=== PATIENT | female | born 1945 | race Caucasian/White ===

== ENCOUNTER 2017-01-31 07:23 | Observation (INO) ==
--- NOTE | 2017-01-31 07:44 | Emergency Department Note ---
Disposition Clinical Impression: Generalized weakness Disposition: Admitted As Inpatient Condition: Good Referrals: Chelly Santamaria SLOPE HOIST OPERATOR [Primary Care Provider] - Forms: ED Satisfaction Letter Time of Disposition: 10:59 Weakness HPI - General Chief complaint: ED Fall Stated complaint: generalized weakness per EMS/ fall Time Seen by Provider: 01/31/17 07:42 Source: patient, EMS Mode of arrival: EMS Limitations: no limitations Nursing Notes Reviewed: Yes Vital Signs Reviewed: Yes - History of Present Illness HPI Narrative: Patient reports for 24 hours she has been "not feeling well". This morning she has started to try to go to the bathroom and she fell without injury. States that she is "just weak". She specifically denies headache or visual changes. She denies chest pain, palpitations. She denies cough or shortness of breath but states she has COPD and is no more short of breath than usual. She denies fevers, chills or sweats. She denies any abdominal pain nor any nausea, vomiting or diarrhea. She has not had bloody or black stools. She is urinary frequency or dysuria. She denies any extremity swelling or pain. She denies numbness, tingling or weakness to any extremity and states that she is "just weak all over". She denies any episodes like this in the past. She denies any change in medicines. She denies any ill exposures. Pt Subjective Complaint: generalized weakness/fatigue, difficulty ambulating Onset (ago): day(s) (1) Duration: gradually worsening Location: generalized Migration: none Pain Severity: none Pain Scale: 0 Improves with: none Worsens with: exertion Associated symptoms: Denies: chest pain, confusion, dark stools, diaphoresis, dysuria, easy bruising, fever/chills, headaches, loss of appetite, nausea/ vomiting, myalgias, rash, shortness of breath, syncope - Related Data Allergies Allergy/AdvReac Type Severity Reaction Status Date / Time niacin Allergy Hives Verified 01/31/17 07:29 All systems ED: reviewed and negative except as stated. Past Medical History - Past Medical History Attestation: Yes The following information was validated with the patient. Source: patient, old records reviewed, nursing notes reviewed Medical history: Reports: COPD, GERD, hypertension Psychiatric history: Reports: anxiety, depression - Social History Smoking Status: Former smoker Smokeless Tobacco Status: No Alcohol use: Reports: none Drug use: Reports: none Physical Exam - General Limitations: no limitations General appearance: alert, in no apparent distress, other (Appear somewhat sallow in her color.) - Head Head exam: atraumatic, normocephalic, normal inspection - Eye Eye exam: Present: normal appearance, PERRL, EOMI. Absent: scleral icterus, conjunctival injection - ENT ENT exam: normal exam, normal oropharynx, mucous membranes moist - Neck Neck exam: Present: normal inspection, full ROM, trachea midline. Absent: tenderness, meningismus - Chest Chest inspection: Present: normal inspection, symmetric chest wall rise - Respiratory Respiratory exam: Present: normal lung sounds bilaterally, wheezes. Absent: respiratory distress - Cardiovascular Cardiovascular exam: Present: regular rate, normal rhythm, normal heart sounds. Absent: tachycardia - Abdominal Exam Abdominal exam: Present: soft, Non-Tender, normal bowel sounds. Absent: tenderness, distention, guarding, rebound, rigidity - Extremities Exam Extremities exam: Present: normal inspection, full ROM, normal capillary refill. Absent: tenderness, pedal edema, calf tenderness - Expanded Lower Extremity Exam Neurovascular/Tendon exam: Present: normal capillary refill. Absent: motor deficit, sensory deficit, tendon deficit Gait: not tested/not observed - Back Exam Back exam: Present: normal inspection, full ROM. Absent: tenderness, CVA tenderness (R), CVA tenderness (L), rashes - Neurological Exam Neurological exam: Present: alert, oriented X3, CN II-XII intact. Absent: motor sensory deficit - Psychiatric Psychiatric exam: Present: normal affect, normal mood - Skin Skin exam: Present: warm, dry, intact. Absent: normal color (Sallow), cyanosis , diaphoresis, pallor Course - Reevaluation(s) Reevaluation #1: Discussed test results and treatment plan with patient and family. They are agreeable with observation admission, further workup for generalized weakness, repeat troponins. Time: 10:50 Vital Signs Temperature 98.0 F 01/31/17 07:30 Pulse Rate 87 01/31/17 07:30 Respiratory Rate 18 01/31/17 07:30 Blood Pressure 143/90 01/31/17 07:30 O2 Sat by Pulse Oximetry 96 01/31/17 07:30 Temperature 98.0 F 01/31/17 07:30 Pulse Rate 76 01/31/17 10:20 Respiratory Rate 18 01/31/17 10:20 Blood Pressure 130/82 01/31/17 10:20 O2 Sat by Pulse Oximetry 97 01/31/17 10:20 Oxygen Delivery Oxygen Delivery Nasal Cannula Weakness - MDM Narrative Medical decision making narrative: The etiology of her generalized weakness and inability to ambulate is not clear. She has a minimal troponin elevation which is not increasing. She has no chest pain or shortness of breath. She is unable to manage at home. I spoke with Dr. Martinez. He is willing to admit the patient for observation, repeat troponins, monitoring and further workup. - Differential Diagnosis Differential Diagnosis: Likely: acute myocardial infarction, anemia, hypoglycemia, sepsis/infection, dehydration, medication effect, metabolic - Medical Records Medical records reviewed: Yes I reviewed the patient's medical records. - Lab Data Lab results reviewed: Yes I reviewed the patient's lab results. Result diagrams: 01/31/17 07:55 01/31/17 07:55 Lab Results 01/31/17 01/31/17 01/31/17 Range/Units 07:53 07:55 07:55 WBC 10.2 (4.3-11.1) K/mcL RBC 4.70 (3.82-4.97) M/mcL Hgb 12.9 (11.5-15.4) g/dL Hct 40.9 (35.3-44.9) % MCV 87.0 (83.0-100.0) fL MCH 27.4 L (28.0-33.3) pg MCHC 31.5 L (31.6-35.5) g/dL RDW 13.8 (11.5-14.5) % Plt Count 194 (140-400) K/mcL MPV 9.0 L (9.4-12.4) fL Immature Gran % 0.6 (0-4) % Seg Neutrophils % 85.2 % Lymphocytes % 6.8 % Monocytes % 7.1 % Eosinophils % 0.0 % Basophils % 0.3 % Neutrophils # 8.7 (1.6-8.9) K/mcL Lymphocytes # 0.7 (0.6-4.6) K/mcL Monocytes # 0.7 (0.0-1.3) K/mcL Eosinophils # 0.0 (0.0-0.6) K/mcL Basophils # 0.0 (0.0-0.2) K/mcL Sodium 142 (136-145) mEq/L Potassium 4.1 (3.5-4.5) mEq/L Chloride 101 (98-109) mEq/L Carbon Dioxide 30 H (19-29) mEq/L BUN 27 H (7-20) mg/dL Creatinine 1.39 H (0.57-1.11) mg/dL Est GFR ( Amer) 45 L (> 60) Est GFR (Non-Af Amer) 37 L (> 60) BUN/Creatinine Ratio 19 (6-26) Glucose 131 H (70-99) mg/dL POC Glucose 130 H (58-89) Calculated Osmolality 301 H (280-300) Calcium 10.3 (8.6-10.8) mg/dL Total Bilirubin 1.0 (0.2-1.2) mg/dL AST 13 (5-34) Units/L ALT 6 (0-55) Units/L Alkaline Phosphatase 73 (38-126) Units/L Troponin I (0-0.03) ng/mL Serum Total Protein 7.1 (6.0-8.3) g/dL Albumin 3.3 L (3.5-5.0) g/dL Globulin 3.8 H (2.4-3.5) g/dL Albumin/Globulin Ratio 0.9 L (1.1-2.2) TSH (0.350-4.840) mcIU/mL Urine Color (Yellow) Urine Clarity (Clear) Urine pH (5.0-8.0) pH Units Ur Specific [place] (1.010-1.025) Urine Protein (Neg-Trace) mg/dL Urine Glucose (UA) (Normal) mg/dL Urine Ketones (Negative) mg/dL Urine Blood (Negative) Urine Nitrite (Negative) Urine Bilirubin (Negative) Urine Urobilinogen (Normal) mg/dL Ur Leukocyte Esterase (Negative) Urine Microscopic WBC (0-3) per hpf Ur Squamous Epith Cells (None-Few) per lpf Amorphous Sediment (Few) Granular Casts (None Seen) per lpf Ur Culture Indicated? (NO) 01/31/17 01/31/17 01/31/17 Range/Units 07:55 07:55 08:10 WBC (4.3-11.1) K/mcL RBC (3.82-4.97) M/mcL Hgb (11.5-15.4) g/dL Hct (35.3-44.9) % MCV (83.0-100.0) fL MCH (28.0-33.3) pg MCHC (31.6-35.5) g/dL RDW (11.5-14.5) % Plt Count (140-400) K/mcL MPV (9.4-12.4) fL Immature Gran % (0-4) % Seg Neutrophils % % Lymphocytes % % Monocytes % % Eosinophils % % Basophils % % Neutrophils # (1.6-8.9) K/mcL Lymphocytes # (0.6-4.6) K/mcL Monocytes # (0.0-1.3) K/mcL Eosinophils # (0.0-0.6) K/mcL Basophils # (0.0-0.2) K/mcL Sodium (136-145) mEq/L Potassium (3.5-4.5) mEq/L Chloride (98-109) mEq/L Carbon Dioxide (19-29) mEq/L BUN (7-20) mg/dL Creatinine (0.57-1.11) mg/dL Est GFR ( Amer) (> 60) Est GFR (Non-Af Amer) (> 60) BUN/Creatinine Ratio (6-26) Glucose (70-99) mg/dL POC Glucose (58-89) Calculated Osmolality (280-300) Calcium (8.6-10.8) mg/dL Total Bilirubin (0.2-1.2) mg/dL AST (5-34) Units/L ALT (0-55) Units/L Alkaline Phosphatase (38-126) Units/L Troponin I 0.04 H* (0-0.03) ng/mL Serum Total Protein (6.0-8.3) g/dL Albumin (3.5-5.0) g/dL Globulin (2.4-3.5) g/dL Albumin/Globulin Ratio (1.1-2.2) TSH 1.041 (0.350-4.840) mcIU/mL Urine Color Yellow (Yellow) Urine Clarity Slightly Cloudy A (Clear) Urine pH 5.0 (5.0-8.0) pH Units Ur Specific [place] 1.025 (1.010-1.025) Urine Protein >=300 H (Neg-Trace) mg/dL Urine Glucose (UA) Normal (Normal) mg/dL Urine Ketones Negative (Negative) mg/dL Urine Blood Moderate H (Negative) Urine Nitrite Negative (Negative) Urine Bilirubin Negative (Negative) Urine Urobilinogen Normal (Normal) mg/dL Ur Leukocyte Esterase Negative (Negative) Urine Microscopic WBC 0-3 (0-3) per hpf Ur Squamous Epith Cells Few (None-Few) per lpf Amorphous Sediment Many H (Few) Granular Casts Moderate H (None Seen) per lpf Ur Culture Indicated? NO (NO) 01/31/17 Range/Units 10:00 WBC (4.3-11.1) K/mcL RBC (3.82-4.97) M/mcL Hgb (11.5-15.4) g/dL Hct (35.3-44.9) % MCV (83.0-100.0) fL MCH (28.0-33.3) pg MCHC (31.6-35.5) g/dL RDW (11.5-14.5) % Plt Count (140-400) K/mcL MPV (9.4-12.4) fL Immature Gran % (0-4) % Seg Neutrophils % % Lymphocytes % % Monocytes % % Eosinophils % % Basophils % % Neutrophils # (1.6-8.9) K/mcL Lymphocytes # (0.6-4.6) K/mcL Monocytes # (0.0-1.3) K/mcL Eosinophils # (0.0-0.6) K/mcL Basophils # (0.0-0.2) K/mcL Sodium (136-145) mEq/L Potassium (3.5-4.5) mEq/L Chloride (98-109) mEq/L Carbon Dioxide (19-29) mEq/L BUN (7-20) mg/dL Creatinine (0.57-1.11) mg/dL Est GFR ( Amer) (> 60) Est GFR (Non-Af Amer) (> 60) BUN/Creatinine Ratio (6-26) Glucose (70-99) mg/dL POC Glucose (58-89) Calculated Osmolality (280-300) Calcium (8.6-10.8) mg/dL Total Bilirubin (0.2-1.2) mg/dL AST (5-34) Units/L ALT (0-55) Units/L Alkaline Phosphatase (38-126) Units/L Troponin I 0.04 H* (0-0.03) ng/mL Serum Total Protein (6.0-8.3) g/dL Albumin (3.5-5.0) g/dL Globulin (2.4-3.5) g/dL Albumin/Globulin Ratio (1.1-2.2) TSH (0.350-4.840) mcIU/mL Urine Color (Yellow) Urine Clarity (Clear) Urine pH (5.0-8.0) pH Units Ur Specific [place] (1.010-1.025) Urine Protein (Neg-Trace) mg/dL Urine Glucose (UA) (Normal) mg/dL Urine Ketones (Negative) mg/dL Urine Blood (Negative) Urine Nitrite (Negative) Urine Bilirubin (Negative) Urine Urobilinogen (Normal) mg/dL Ur Leukocyte Esterase (Negative) Urine Microscopic WBC (0-3) per hpf Ur Squamous Epith Cells (None-Few) per lpf Amorphous Sediment (Few) Granular Casts (None Seen) per lpf Ur Culture Indicated? (NO) - Radiology Data Radiology results reviewed: Yes I reviewed the patient's radiology results. ITS Impressions Chest X-Ray 01/31/17 07:37 IMPRESSION: Stable exam without acute cardiopulmonary findings. D/ / Tracey Falcon MD / Tracey Falcon MD Interpreting Provider: Tracey Falcon MD - EKG Data EKG attestation: Yes I reviewed and interpreted this EKG. EKG shows normal: sinus rhythm, axis, intervals, ST-T waves Rhythm: PVC's [place]/QRS: LAHB/LAFB T wave inversions noted in: v5, v6 Interpretation: no acute changes S.B.A.R. - S.B.A.R. Situation: Demographics, MOA Background: Presenting Complaint, Relevant PMH, Meds, & Allergies Assessment: Vital Signs, Course and respsone to treatment, Exam Concerns, Patient/Family Expectation, Pertinant Lab Results, Outstanding Labs Recommendation: Barrier(s) to disposition, Recommendation based on pending studies, treatments, or consults Alexsandra Report Given to: Dr. Goel SAmari Repor Time: 08:00
[2017-01-31 08:13] LABS: Basophils % 0.3 %; Hematocrit 40.9 % (35.3-44.9); Hemoglobin 12.9 g/dL (11.5-15.4); Immature Granulocytes % 0.6 % (0-4); Lymphocytes # 0.7 K/mcL (0.6-4.6); Lymphocytes % 6.8 %; Mean Corpuscular HGB Conc 31.5 g/dL (31.6-35.5); Mean Corpuscular Hemoglobin 27.4 pg (28.0-33.3); Monocytes # 0.7 K/mcL (0.0-1.3); Monocytes % 7.1 %; Neutrophils # 8.7 K/mcL (1.6-8.9); Platelet Count 194 K/mcL (140-400); Red Cell Distribution Width 13.8 % (11.5-14.5); Segmented Neutrophils % 85.2 %
[2017-01-31 08:16] LABS: Bilirubin,Urine Negative (Negative); Blood,Urine Moderate (Negative); Clarity,Urine Slightly Cloudy (Clear); Color,Urine Yellow (Yellow); Glucose,Urine (UA) Normal (Normal); Ketones,Urine Negative (Negative); Leukocyte Esterase,Urine Negative (Negative); Nitrite,Urine Negative (Negative); Protein,Urine >=300 mg/dL (Neg-Trace); Specific Gravity,Urine 1.025 (1.010-1.025); Urobilinogen,Urine Normal (Normal)
[2017-01-31 08:23] LABS: Amorphous Sediment,Urine Many (Few); Granular Casts,Urine Moderate per lpf (None Seen); Squamous Epithelial Cell,Urine Few per lpf (None-Few); WBC,Urine 0-3 per hpf (0-3)
[2017-01-31 08:29] LABS: Albumin 3.3 g/dL (3.5-5.0); Albumin/Globulin Ratio 0.9 (1.1-2.2); Calcium 10.3 mg/dL (8.6-10.8); Globulin 3.8 g/dL (2.4-3.5); Potassium 4.1 mEq/L (3.5-4.5); Total Protein 7.1 g/dL (6.0-8.3)
[2017-01-31] MEDS ORDERED: Aspirin 81 MG TAB.CHEW PO ONE (09:01)
[2017-01-31] MEDS ORDERED: Naloxone 0.4 MG/ML INJ IVP PRN (12:51)
[2017-01-31] MEDS ORDERED: Budesonide/Formoterol 160/4.5 MDI IH ONE (14:59)
--- NOTE | 2017-01-31 15:01 | Internal Med History&Physical ---
Date of Encounter: 01/31/17 Time of Encounter: 14:15 Assessment and Plan (1) Generalized weakness Current visit: Yes Status: Acute Suspect multifactorial origin. Will treat with workup as outlined below. (2) Adrenal mass, right Current visit: Yes Status: Acute Will order CT of chest, abdomen, and pelvis for further evaluation. (3) Neutrophilia Current visit: Yes Status: Acute Will order chest CT (4) CKD (chronic kidney disease) stage 3, GFR 30-59 ml/min Current visit: Yes Status: Chronic We will give IV fluids and monitor renal indices. Internal Medicine - H&P: HPI Chief complaint: Weakness Admitted From: Home Plans for Post Hospital Care: Home History of present illness: Ms. Tompkins is a 71 year old female who came to emergency room stating she was too weak to get out of bed this morning. She called for her grandson who lives with her but he was apparently unable to hear her calling. She then called 911 and was brought to emergency room. She was evaluated and admitted to [facility] floor for ongoing care needs. She states the morning of January 30 she also felt weak but her grandson did come when she called. He was able to help her out of bed and she felt as strong as usual for the rest of the day. She reports she has had rhinorrhea for the last 3 days but denies worsening cough or dyspnea. She denies other infectious symptoms such as vomiting or diarrhea or fevers. Respiratory history is significant for having smoked from age [age] up to 1 pack per day. She states she had PFTs approximately 2013 and was told she had COPD. She wears oxygen at home 14/05. Past Med Surg Social Fam HX - Past Medical History Medical history: COPD, GERD, hypertension Psychiatric history: anxiety, depression - Social History Smoking Status: Former smoker Smokeless Tobacco Status: No Alcohol use: none Drug use: none Internal Medicine - H&P: Meds Albuterol Sulfate [Proair Hfa] 1 puff IH DAILY 01/31/17 [History] Amlodipine [Norvasc] 5 mg PO DAILY 01/31/17 [History] Fluticasone/Salmeterol [Advair 500-50 Diskus] 1 each IH DAILY 01/31/17 [History] Lansoprazole [Prevacid] 30 mg PO DAILY 01/31/17 [History] Metoprolol [Lopressor] 25 mg PO DAILY 01/31/17 [History] Oxybutynin Chloride [Ditropan Xl] 5 mg PO DAILY 01/31/17 [History] Ranitidine HCl [Acid Enterprise Systems Engineer] 150 mg PO DAILY 01/31/17 [History] Tiotropium [Spiriva] 18 mcg IH 0700 01/31/17 [History] Tramadol HCl [Ultram] 50 mg PO DAILY 01/31/17 [History] Allergies niacin Allergy (Verified 01/31/17 07:29) Hives quinine Allergy (Verified 01/31/17 11:32) See Comments states it takes her air away All Systems PM: A 10-system review of systems was performed and is negative for pertinent findings except as documented above in the HPI. Review of systems: Gen.: She states her weight has decreased by 10 pounds in the past year, intentionally Cardiovascular: She has history of hypertension but denies GA heart failure angina DVT or pulmonary embolus. Respiratory: As per history of present illness GI: She denies disorders of her liver gallbladder or exocrine pancreas : She has chronic kidney disease and follows with Dr. Zapata's practice. She denies other kidney or bladder disorders Neurologic: She denies large distribution strokes or seizures. Endocrine: She had diabetes diagnosed in the past but does not take medication at this time. Hemoglobin A1c was 5.3% on 03/14/2016. She denies thyroid disease or hyperlipidemia Hematology/oncology: She denies blood disorders cancers or anemia. A chest CT done 09/05/2016 showed a mass in the right adrenal gland measuring 5.4 x 4.1 cm suspicious for adrenal carcinoma or metastatic disease. The patient did not mention this CT scan finding and it was discovered incidentally reviewing her old records. Psychiatric: She has history of anxiety but denies depression or other mental health issues Musk skeletal: She has DJD but no known gout or other bone joint or muscle disorders. - Constitutional Vitals: Temp Pulse Resp BP Pulse Ox 97.9 F 77 16 155/92 96 01/31/17 13:00 01/31/17 13:00 01/31/17 13:00 01/31/17 13:00 01/31/17 13:00 Exam: Gen.: She is a well-developed well-nourished female who appears weak but in no severe distress at present time HEENT: Head is atraumatic and normocephalic. Eyes: EOMI. There is no scleral icterus. Mouth: Mucosa is moist. Neck: Supple and nontender. There is no thyromegaly or adenopathy noted. Heart: Regular without murmurs gallops or ectopics. Lungs: No wheezes or crackles are heard. She has egophony in the right posterior lower lung field and equivocally egophony in the left posterior lung field. Back: She has dorsal kyphosis. There is no flank tenderness. Abdomen: Soft and nontender. No masses or guarding noted. Extremities: There is no cyanosis edema or clubbing noted. Dorsalis pedis and posterior tibial pulses are trace palpable bilaterally. Her feet are cool to touch. Neurologic: Mental status: She is talkative and a good historian. Cranial nerves: Smile is symmetric. Forehead wrinkles bilaterally. Tongue protrudes midline. EOMI. Motor: There is no pronator drift. Cerebellar: Finger to nose is intact bilaterally. Skin: Warm and dry Internal Med - H&P Results - Labs CBC & Chem 7: 01/31/17 07:55 01/31/17 07:55
[2017-01-31] MEDS ORDERED: Tiotropium 18 MCG inhalation IH ONE (15:02)
[2017-01-31] MEDS: Famotidine 20 MG TABLET PO SCH (15:32)
--- NOTE | 2017-01-31 19:58 | Electrocardiograph Report ---
[address] [place], [place] [address] Test Date: 2017-01-31 Pat Name: Pao Tompkins Department: [id number] Room: [facility] Gender: F Client Service Representative: [id number] : 1945 Requested By: Mitchel Vo Order Number: [id number] Reading MD: Socorro Mijares Measurements Intervals [place] Rate: 84 P: -88 DE: 139 QRS: -50 QRSD: 107 T: 18 QT: 393 QTc: 434 Interpretive Statements ECTOPIC ATRIAL RHYTHM LEFT ANTERIOR FASCICULAR BLOCK ST DEVIATION AND MODERATE T-WAVE ABNORMALITY, CONSIDER LATERAL ISCHEMIA Electronically Signed On 01-31-2017 19:56:55 EDT by Socorro Mijares
[2017-02-01 06:07] LABS: Basophils % 0.3 %; Eosinophils # 0.1 K/mcL (0.0-0.6); Eosinophils % 1.2 %; Hematocrit 33.2 % (35.3-44.9); Hemoglobin 10.5 g/dL (11.5-15.4); Immature Granulocytes % 0.4 % (0-4); Lymphocytes # 1.4 K/mcL (0.6-4.6); Lymphocytes % 20.6 %; Mean Corpuscular HGB Conc 31.6 g/dL (31.6-35.5); Mean Corpuscular Hemoglobin 27.4 pg (28.0-33.3); Mean Corpuscular Volume 86.7 fL (83.0-100.0); Mean Platelet Volume 9.4 fL (9.4-12.4); Monocytes # 0.6 K/mcL (0.0-1.3); Monocytes % 9.2 %; Neutrophils # 4.7 K/mcL (1.6-8.9); Platelet Count 166 K/mcL (140-400); Red Blood Count 3.83 M/mcL (3.82-4.97); Red Cell Distribution Width 13.8 % (11.5-14.5); Segmented Neutrophils % 68.3 %
[2017-02-01 06:23] LABS: Calcium 9.2 mg/dL (8.6-10.8); Potassium 3.8 mEq/L (3.5-4.5)
[2017-02-01 06:59] VITALS: BP 146/81
[2017-02-01] MEDS ORDERED: Tiotropium 18 MCG inhalation IH SCH ×2 (07:00→10:00)
[2017-02-01] MEDS: Famotidine 20 MG TABLET PO SCH (08:07)
[2017-02-01] MEDS ORDERED: NON-FORMULARY MEDICATION 1 EACH EACH (Ranitidine Hcl [Acid Reducer] 150 MG) PO SCH (09:00)
[2017-02-01] MEDS ORDERED: NON-FORMULARY MEDICATION 1 EACH EACH (Oxybutynin Chloride [Ditropan Xl] 5 MG) PO SCH (09:00)
[2017-02-01] MEDS ORDERED: NON-FORMULARY MEDICATION 1 EACH EACH (Fluticasone/Salmeterol [Advair 500-50 Diskus] 1 EACH IH SCH (09:00)
[2017-02-01] MEDS ORDERED: Famotidine 20 MG TABLET PO SCH (09:00)
--- NOTE | 2017-02-01 09:02 | Discharge Summary ---
Date of Encounter: 02/01/17 Time of Encounter: 08:50 - Discharge Diagnosis (1) Generalized weakness Priority: Primary Status: Acute (2) Adrenal mass, right Priority: Secondary Status: Chronic (3) Neutrophilia Priority: Secondary Status: Resolved (4) CKD (chronic kidney disease) stage 3, GFR 30-59 ml/min Priority: Secondary Status: Chronic - Discharge Medications Home Medications: Albuterol Sulfate [Proair Hfa] 1 puff IH DAILY 01/31/17 [History] Amlodipine [Norvasc] 5 mg PO DAILY 01/31/17 [History] Fluticasone/Salmeterol [Advair 500-50 Diskus] 1 each IH DAILY 01/31/17 [History] Lansoprazole [Prevacid] 30 mg PO DAILY 01/31/17 [History] Metoprolol [Lopressor] 25 mg PO DAILY 01/31/17 [History] Oxybutynin Chloride [Ditropan Xl] 5 mg PO DAILY 01/31/17 [History] Ranitidine HCl [Acid Forest Management Professor] 150 mg PO DAILY 01/31/17 [History] Tiotropium [Spiriva] 18 mcg IH 0700 01/31/17 [History] Tramadol HCl [Ultram] 50 mg PO DAILY 01/31/17 [History] Allergies/Adverse Reactions: Allergies niacin Allergy (Verified 01/31/17 07:29) Hives quinine Allergy (Verified 01/31/17 11:32) See Comments states it takes her air away Procedures/tests Complete & Pending: Procedures Performed prior 72 hours Category Date Time Status CT abd pelvis wo no iv no oral [CT] Routine Cat Scan 01/31/17 14:[address] chest wo con [CT] Routine Cat Scan 01/31/17 14:53 Completed Date of admission: 01/31/17 11:57 Primary care physician: Chelly Santamaria Consults: 01/31/17 13:29 Consult to Soil Field Technician [CONS] Routine Reason for SW Consult: discharge planning, continuation of services, possible need for therapy - Patient Status Disposition: Home, Self-Care Condition: Good Overall status at discharge: patient is progressing back to baseline - Discharge Instructions Follow Up With: Chelly Santamaria, STATUE CARVER [Primary Care Provider] - 1 week - Diet and Activity Activity: resume usual activities as tolerated, wear oxygen at all times Diet: advance to your usual diet Hospital course: Ms. Tompkins is a 71 year old female who came to emergency room stating she was too weak to get out of bed this morning. She called for her grandson who lives with her but he was apparently unable to hear her calling. She then called 911 and was brought to emergency room. She was evaluated and admitted to [facility] for ongoing care needs. Initial orders were written by the emergency room physician. I saw her on January 31 and performed the history and physical. A CT of the chest abdomen and pelvis was ordered to further evaluate her weakness and previously seen right adrenal mass. The right adrenal mass appeared similar in size to previous scan at 5.8 x 4.5 cm. This is suspicious for malignancy. Chest CT showed diffuse severe emphysema changes with associated diffuse bronchial wall thickening scattered areas of fibrosis. I informed the patient of her adrenal mass. She reported she been told about this before but declined further workup. I explained the risks of avoiding further workup and treatment. She will talk with her PCP further about this. She was given IV fluids and her creatinine improved to 1.29. Her neutrophilia resolved on follow-up blood work done February 01. She remained afebrile during her hospital stay. Her vital signs remained stable otherwise. When I saw her on February 01 she reports she been able to get out of bed on her own strength and ambulate in the room. She felt stable for discharge home. She will follow with her PCP Chelly Santamaria CNP within 1 week. - Time Spent with Patient Total time spent providing and/or coordinating discharge services: - Constitutional Vitals: Temp Pulse Resp BP Pulse Ox 98.3 F 63 16 146/81 98 02/01/17 06:57 02/01/17 06:57 02/01/17 06:57 02/01/17 06:57 02/01/17 06:57
[2017-02-01] MEDS ORDERED: Budesonide/Formoterol 160/4.5 MDI IH SCH (10:00)
== END 2017-02-01 12:00 | disposition home or self-care (01) ==
LOC: INPPIK 07:23 → EMEROOPIK 07:23 → INPPIK 12:16
PROVIDERS: ADMIT Internal Medicine; ATTEND Internal Medicine

== ENCOUNTER 2019-02-08 20:23 | Inpatient (IN) ==
--- NOTE | 2019-02-08 20:28 | Emergency Department Note ---
Disposition Clinical Impression: History of fall, Left hip pain Disposition: Admitted As Inpatient Condition: Fair Referrals: Chelly Santamaria CNP [Primary Care Provider] - Forms: ED Satisfaction Letter Fall HPI - General Chief Complaint: ED Extremity Injury, Lower Stated Complaint: LT UPPER LEG PAIN Time Seen by Provider: 02/08/19 20:27 Source: patient, EMS Mode of arrival: EMS Limitations: no limitations, age Nursing Notes Reviewed: Yes Vital Signs Reviewed: Yes - History of Present Illness HPI Narrative: Patient had a fall yesterday evening down to her left side. She is brought in here and evaluated with x-rays of the left knee and left hip which were notable for significant osteopenia but no definite fractures. She declined pain medicine was discharged home. She states she is been okay if she is a rest but she tries to move she has severe pain in the anterior pelvis and left hip region. She has not had any recurrent fall or injury. She has not had any shortening or rotation to the leg. She denies any numbness or tingling down the leg. She denies any injury to her head, neck or back. She denies chest pain, shortness breath or palpitation. She denies abdominal pain. She denies any upper extremity injuries. With severe pain and inability to move/ambulate a squad has been again called and she has been brought in for evaluation. EMS did transmit an EKG. This showed a rate of 81 with PVCs. She has significant baseline artifact. Rate is 81, axis is 141, NM interval is 124 and a QT/QTc is 344/380. I do not see acute ST or T-wave changes and this very limited EKG. This is on my interpretation. Pt Subjective Complaint: fall Onset (ago): day(s) (1) Fall From: standing Place Fall Occurred: home Loss of Consciousness: none Prolonged Down Time?: no Context: tripped/slipped Location of injury: pelvis Location of injury - extremities: Left: hip Severity: moderate, severe Quality: unable to describe Associated symptoms (after fall): Reports: unable to walk. Denies: headache, neck pain, numbness, weakness, chest pain, shortness of breath, abdominal pain, hematuria, lightheaded, vertigo, confusion - Related Data Home Medications Medication Instructions Recorded Confirmed Albuterol Sulfate [Proair Hfa] 1 puff IH AD PRN 01/31/17 02/07/19 Lansoprazole [Prevacid] 30 mg PO DAILY 01/31/17 02/07/19 amLODIPine [Norvasc] 5 mg PO DAILY 01/31/17 02/07/19 Aspirin [Lo-Dose Aspirin EC] 81 mg PO DAILY 11/13/17 02/07/19 Cholecalciferol (Vitamin D3) 5,000 unit PO DAILY 11/13/17 02/07/19 [Vitamin D3] Metoprolol [Lopressor] 50 mg PO DAILY 11/13/17 02/07/19 Fluticasone Propionate [Flovent 2 puff IH BID 02/07/19 02/07/19 Hfa] Tramadol HCl [Ultram] 50 mg PO BID PRN 02/07/19 02/07/19 Umeclidinium Brm/Vilanterol Tr 1 each IH DAILY 02/07/19 02/07/19 [Anoro Ellipta 62.5-25 Mcg INH] raNITIdine HCl [Zantac] 150 mg PO BID 02/07/19 02/07/19 Allergies Allergy/AdvReac Type Severity Reaction Status Date / Time niacin Allergy Hives Verified 08/17/17 11:57 quinine Allergy See Verified 08/17/17 11:57 Comments All systems ED: reviewed and negative except as stated. Fall PMH - Past Medical History Medical history: Reports: arthritis, COPD (Oxygen dependent), GERD, hypertension Surgical history: Reports: appendectomy, cholecystectomy, colectomy (Partial colectomy), herniorrhaphy Psychiatric history: Reports: anxiety, depression - Social History Smoking Status: Former smoker Alcohol use: Reports: none Drug use: Reports: none Physical Exam - General Limitations: no limitations, age General appearance: alert, in distress - Head Head exam: atraumatic, normocephalic, normal inspection - Eye Eye exam: Present: normal appearance, PERRL, EOMI. Absent: conjunctival injection - ENT ENT exam: normal exam, normal oropharynx, mucous membranes moist - Neck Neck exam: Present: normal inspection, full ROM, trachea midline. Absent: tenderness - Chest Chest inspection: Present: normal inspection, symmetric chest wall rise. Absent: tenderness - Respiratory Respiratory exam: Present: normal lung sounds bilaterally. Absent: respiratory distress, wheezes, prolonged expiratory phase - Cardiovascular Cardiovascular exam: Present: regular rate, normal rhythm, normal heart sounds. Absent: tachycardia - Abdominal Exam Abdominal exam: Present: soft, Non-Tender, normal bowel sounds. Absent: tenderness, distention, guarding, rebound, rigidity, pulsatile mass, hernia - Expanded Upper Extremity Exam Shoulder exam: Present: normal inspection, full ROM. Absent: tenderness, swelling Arm exam: Present: normal inspection, full ROM Elbow exam: Present: normal inspection, full ROM. Absent: tenderness, swelling Forearm/Wrist exam: Present: normal inspection, full ROM. Absent: tenderness, swelling Hand exam: Present: normal inspection, full ROM. Absent: tenderness, swelling Vascular exam: Normal: capillary refill, radial pulse - Expanded Lower Extremity Exam Hip/Pelvis exam: Present: normal inspection, tenderness (Anterior and lateral aspect of the left hip.), pelvis stable. Absent: deformity, internal rotation, shortening Upper leg exam: Present: normal inspection, full ROM. Absent: tenderness, swelling Knee exam: Present: ecchymosis (Anterior aspect of the left knee. She is not having sitting in pain to palpation about the left knee.), knee extension intact Lower leg exam: Present: normal inspection, full ROM. Absent: tenderness, swelling Ankle exam: Present: normal inspection, full ROM. Absent: tenderness, swelling Foot/toe exam: Present: normal inspection, full ROM Neurovascular/Tendon exam: Present: normal capillary refill. Absent: pulse deficit Gait: not tested/not observed - Back Exam Back exam: Present: normal inspection, full ROM. Absent: tenderness, vertebral tenderness - Neurological Exam Neurological exam: Present: alert, oriented X3 - Psychiatric Psychiatric exam: Present: normal affect, normal mood - Skin Skin exam: Present: warm, dry, intact, normal color. Absent: diaphoresis, pallor Course Course Narrative: 2229: Care is discussed with the family, patient and ultimately with Dr. Martinez. Verbal orders have been obtained for this patient's observation. The patient has been admitted in stable condition. Vital Signs Temperature 98.8 F 02/08/19 20:30 Pulse Rate 79 02/08/19 20:30 Respiratory Rate 24 02/08/19 20:30 Blood Pressure 165/103 02/08/19 20:30 O2 Sat by Pulse Oximetry 98 02/08/19 20:30 Temperature 98.2 F 02/08/19 21:21 Pulse Rate 86 02/08/19 21:21 Respiratory Rate 20 02/08/19 21:21 Blood Pressure 167/92 02/08/19 21:21 O2 Sat by Pulse Oximetry 98 02/08/19 21:21 Oxygen Delivery Oxygen Delivery Nasal Cannula Fall - Radiology Data Radiology results reviewed: Yes I reviewed the patient's radiology results. Impressions Abdomen/Pelvis CT 02/08/19 20:29 IMPRESSION: 1. No pelvic/left hip fracture or acute abnormality is appreciated. 2. 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 3. Nonspecific enlarging right adrenal mass. Tissue sampling is recommended. 4. Diverticulosis coli without CT evidence of acute diverticulitis. ____ *Managing Abdominal Aortic Aneurysms 2.6-2.9 cm: Every 5 years* 3.0-3.4 cm: Every 3 years. 3.5-3.9 cm: Every 1 year. 4.0-4.4 cm: Every 1 year. Recommend vascular consultation. 4.5-5.4 cm: Every 6 months. Recommend vascular consultation. Greater than or equal to 5.5 cm: Referral to vascular surgeon. *For abdominal aortas with maximum diameter of 2.6-2.9 cm meeting criteria for AAA (>50% of proximal normal segment). Reference: J Vasc Surg. 2008;50(4 Suppl):S2-49 Report D/ / Jacques Lee / Jacques Lee Interpreting Provider: Jacques Lee
[2019-02-08] MEDS ORDERED: 0.9 % Sodium Chloride 1,000 ML IVC SCH (22:30)
[2019-02-08] MEDS ORDERED: *HR* HYDROcodone/Acet 5/325 mg TABLET PO ONE (22:40)
[2019-02-08 22:52] LABS: Basophils % 0.2 %; Eosinophils % 0.3 %; Hematocrit 36.7 % (35.3-44.9); Hemoglobin 11.7 g/dL (11.5-15.4); Immature Granulocytes % 0.6 % (0-4); Lymphocytes # 0.8 K/mcL (0.6-4.6); Lymphocytes % 6.5 %; Mean Corpuscular HGB Conc 31.9 g/dL (31.6-35.5); Mean Corpuscular Hemoglobin 28.2 pg (28.0-33.3); Mean Corpuscular Volume 88.4 fL (83.0-100.0); Mean Platelet Volume 9.3 fL (9.4-12.4); Monocytes # 0.8 K/mcL (0.0-1.3); Monocytes % 6.4 %; Neutrophils # 10.2 K/mcL (1.6-8.9); Platelet Count 217 K/mcL (140-400); Red Blood Count 4.15 M/mcL (3.82-4.97); Red Cell Distribution Width 13.2 % (11.5-14.5)
[2019-02-08 23:07] LABS: Calcium 9.7 mg/dL (8.6-10.3); Potassium 3.6 mEq/L (3.5-5.1)
[2019-02-08 23:17] LABS: Bilirubin,Urine Small (Negative); Blood,Urine Small (Negative); Clarity,Urine Cloudy (Clear); Color,Urine Yellow (Yellow); Glucose,Urine (UA) Normal (Normal); Ketones,Urine Trace mg/dL (Negative); Leukocyte Esterase,Urine Negative (Negative); Nitrite,Urine Negative (Negative); Protein,Urine >=300 mg/dL (Neg-Trace); Specific Gravity,Urine 1.025 (1.010-1.025); Urobilinogen,Urine Normal (Normal)
[2019-02-08 23:45] LABS: Bacteria,Urine Many per hpf (None-Few); Squamous Epithelial Cell,Urine Moderate per lpf (None-Few)
[2019-02-08 23:46] LABS: Hyaline Casts,Urine Few per lpf (None-Few); RBC,Urine 0-3 per hpf (0-3); WBC,Urine 0-3 per hpf (0-3)
[2019-02-08 23:47] LABS: Granular Casts,Urine Few per lpf (None Seen)
[2019-02-08 23:48] LABS: Renal Epithelial Cells,Urine Few per hpf (None-Few); White Blood Cell Casts,Urine Few per lpf (None Seen)
[2019-02-09] MEDS ORDERED: Acetaminophen 325 MG TABLET PO PRN (00:04)
[2019-02-09] MEDS ORDERED: Ondansetron 4 MG/2 ML VIAL IVP PRN (00:04)
[2019-02-09] MEDS ORDERED: Naloxone 0.4 MG/ML INJ IVP PRN (00:04)
[2019-02-09] MEDS ORDERED: Ibuprofen 400 MG TABLET PO PRN (00:04)
[2019-02-09] MEDS: 0.9 % Sodium Chloride 1,000 ML IVC SCH ×2 (01:08→11:15)
--- NOTE | 2019-02-09 13:12 | Internal Med History&Physical ---
Date of Encounter: 02/09/19 Time of Encounter: 12:30 Assessment and Plan (1) Pneumonia Current visit: Yes Status: Acute She will be started on Rocephin and Zithromax with lactobacillus. Qualifiers: Pneumonia type: due to unspecified organism Laterality: left Lung location: lower lobe of lung Qualified Code(s): J18.1 - Lobar pneumonia, unspecified organism (2) COPD (chronic obstructive pulmonary disease) Current visit: Yes Status: Chronic Continue supplemental oxygen and pulmonary medications. Treatment for pneumonia as above. Qualifiers: COPD type: unspecified COPD Qualified Code(s): J44.9 - Chronic obstructive pulmonary disease, unspecified (3) Adrenal mass, right Current visit: No Status: Chronic Likely malignancy. Uncertain if primary or metastatic. She declines further workup or treatment. (4) CKD (chronic kidney disease) stage 3, GFR 30-59 ml/min Current visit: No Status: Chronic Monitor renal indices. (5) Fall Current visit: No Status: Acute She will have PT and OT evaluation ongoing intervention. She feels she should likely go to SNF for longer-term care needs. Qualifiers: Encounter type: initial encounter Qualified Code(s): W19.XXXA - Unspecified fall, initial encounter Internal Medicine - H&P: HPI Chief complaint: Fall and weakness Admitted From: Emergency Dept Plans for Post Hospital Care: Home History of present illness: Ms. Tompkins is a 73 year old female who came to emergency room stating she had a fall at home. She was unable to get up using her own strength. Her son assisted her up and she was brought to emergency room and evaluated. No fractures were seen but her son did not feel he could continue to care for her in her debilitated state. She was admitted to [facility] floor for ongoing care needs. She reports her most recent previous fall was approximately 3 months ago. She r eports several episodes of feeling as if she were going to fall. She typically uses a walker for ambulation. Neurologic history is negative for known large distribution strokes or seizures. Past Med Surg Social Fam HX - Past Medical History Medical history: arthritis, COPD, GERD, hypertension Additional medical history: UNSURE OF ANY KIND OF CANCER , WEARS HOME 02 AT 3 LPM VIA [place] Psychiatric history: anxiety, depression - Past Surgical History Surgical History: appendectomy, cholecystectomy, colectomy, herniorrhaphy Additional surgical history: hernia repairs. part of colon removed - Social History Smoking Status: Former smoker Packs per day: 1.5 Smokeless Tobacco Status: No Alcohol use: none Drug use: none Internal Medicine - H&P: Meds Albuterol Sulfate [Proair Hfa] 1 puff IH AD PRN 01/31/17 [History] Lansoprazole [Prevacid] 30 mg PO DAILY 01/31/17 [History] amLODIPine [Norvasc] 5 mg PO DAILY 01/31/17 [History] Aspirin [Lo-Dose Aspirin EC] 81 mg PO DAILY 11/13/17 [History] Cholecalciferol (Vitamin D3) [Vitamin D3] 5,000 unit PO DAILY 11/13/17 [History] Metoprolol [Lopressor] 50 mg PO DAILY 11/13/17 [History] Fluticasone Propionate [Flovent Hfa] 2 puff IH BID 02/07/19 [History] Tramadol HCl [Ultram] 50 mg PO BID PRN 02/07/19 [History] Umeclidinium Brm/Vilanterol Tr [Anoro Ellipta 62.5-25 Mcg INH] 1 each IH DAILY 02/07/19 [History] raNITIdine HCl [Zantac] 150 mg PO BID 02/07/19 [History] Allergy/AdvReac Type Severity Reaction Status Date / Time niacin Allergy Hives Verified 08/17/17 11:57 quinine Allergy See Verified 08/17/17 11:57 Comments All Systems PM: A 10-system review of systems was performed and is negative for pertinent findings except as documented above in the HPI. Review of systems: Review of systems from her January 2017 [facility] hospitalization were reviewed and revised as below. Gen.: Her weight has decreased from 77.111 kg on 01/31/2017 to present weight of 56.699 kg. She reported at the January 2017 hospitalization her weight had decreased by 10 pounds in the past year. Cardiovascular: She has history of hypertension but denies ND heart failure angina DVT or pulmonary embolus. Respiratory: She smoked from age [age] up to one pack per day. She reports PFTs approximately 2013 showed COPD. She wears oxygen 14/05. GI: She denies disorders of her liver gallbladder or exocrine pancreas : She has chronic kidney disease and previously followed with Dr. Zapata's practice. She has not seen a hearing care professional recently. Neurologic: As per history of present illness Endocrine: She had diabetes diagnosed in the past but does not take medication at this time. Hemoglobin A1c was 5.5% on 01/07/2019. She denies thyroid disease or hyperlipidemia Hematology/oncology: She denies blood disorders cancers or anemia. A chest CT done 09/05/2016 showed a mass in the right adrenal gland measuring 5.4 x 4.1 cm suspicious for adrenal carcinoma or metastatic disease. I discussed this finding with her at the January 2017 hospitalization and recommended she discuss with her PCP referral for further evaluation/treatment. She states she has elected to pursue no further evaluation or treatment although she realizes she likely has cancer. Psychiatric: She has history of anxiety but denies depression or other mental health issues Musk skeletal: She has DJD but no known gout or other bone joint or muscle disorders. - Constitutional Vitals: Temp Pulse Resp BP Pulse Ox 97.8 F 77 22 165/94 93 02/09/19 10:40 02/09/19 10:40 02/09/19 10:40 02/09/19 10:40 02/09/19 10:40 Exam: Gen.: She is a well-developed lean female lying in bed who appears slightly dyspneic. HEENT: Head is atraumatic and normocephalic. Eyes: EOMI. There is no scleral icterus. Mouth: Mucosa is moist. Neck: Supple and nontender. There is no thyromegaly or adenopathy noted. Heart: Regular without murmurs gallops or ectopics Lungs: No wheezes or crackles are heard. She has diminished breath sounds diffusely. Abdomen: Soft and nontender. No masses or guarding are noted. Extremities: There is no cyanosis edema or clubbing noted. Dorsalis pedis and posterior tibial pulses are trace to 1+ palpable bilaterally. Neurologic: Mental status: She is talkative and appropriate historian. Cranial nerves: Smile is symmetric. Forehead wrinkles bilaterally. Tongue protrudes midline. EOMI. Motor: There is no pronator drift. Cerebellar: Finger to nose is intact bilaterally. Skin: Warm and dry Internal Med - H&P Results - Labs CBC & Chem 7: 02/08/19 22:44 02/08/19 22:44 Labs: Short CBC 02/08/19 Range/Units 22:44 WBC 11.9 H (4.3-11.1) K/mcL Hgb 11.7 (11.5-15.4) g/dL Hct 36.7 (35.3-44.9) % Plt Count 217 (140-400) K/mcL Neutrophils # 10.2 H (1.6-8.9) K/mcL BMP 02/08/19 22:44 Sodium 139 Potassium 3.6 Chloride 96 L Carbon Dioxide 35 H BUN 25 H Creatinine 1.18 Glucose 140 H Calcium 9.7 Urine 02/08/19 Range/Units 23:01 Urine Color Yellow (Yellow) Urine Clarity Cloudy A (Clear) Urine pH 5.0 (5.0-8.0) pH Units Ur Specific [place] 1.025 (1.010-1.025) Urine Protein >=300 H (Neg-Trace) mg/dL Urine Glucose (UA) Normal (Normal) mg/dL - Impressions ITS Impressions Abdomen/Pelvis CT 02/08/19 20:29 IMPRESSION: 1. No pelvic/left hip fracture or acute abnormality is appreciated. 2. 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 3. Nonspecific enlarging right adrenal mass. Tissue sampling is recommended. 4. Diverticulosis coli without CT evidence of acute diverticulitis. ____ *Managing Abdominal Aortic Aneurysms 2.6-2.9 cm: Every 5 years* 3.0-3.4 cm: Every 3 years. 3.5-3.9 cm: Every 1 year. 4.0-4.4 cm: Every 1 year. Recommend vascular consultation. 4.5-5.4 cm: Every 6 months. Recommend vascular consultation. Greater than or equal to 5.5 cm: Referral to vascular surgeon. *For abdominal aortas with maximum diameter of 2.6-2.9 cm meeting criteria for AAA (>50% of proximal normal segment). Reference: J Vasc Surg. 2009 Jul;50(4 Suppl):S2-49 Report D/ / Jacques Lee / Jacques Lee Interpreting Provider: Jacques Lee
[2019-02-09] MEDS: cefTRIAXone 1,000 MG in Water for inj. (sterile) 20 ML 10 ML IVP SCH (13:53)
[2019-02-09] MEDS: 0.45 % Sodium Chloride w/KCl 20 MEQ/1,000 ML MLS IVC SCH (13:54)
[2019-02-09] MEDS: Azithromycin 500 MG in D5% in Water 250 ML IVPB SCH (13:55)
[2019-02-09] MEDS: amLODIPine 5 MG TABLET PO SCH (17:08)
[2019-02-09] MEDS: Lactobacillus 1 EACH CAP.SPRINK PO SCH (20:24)
[2019-02-09] MEDS: Famotidine 20 MG TABLET PO SCH (20:24)
[2019-02-09] MEDS: *HR* HYDROcodone/Acet 5/325 mg TABLET PO PRN (20:24)
[2019-02-09] MEDS: MOMETASONE FUROATE 100 mcg Inhaler IH SCH ×2 (21:39→21:50)
[2019-02-09] MEDS: Albuterol 2.5 MG/3 ML NEBULIZER IH PRN (21:40)
[2019-02-10] MEDS: 0.45 % Sodium Chloride w/KCl 20 MEQ/1,000 ML MLS IVC SCH ×3 (03:29→19:01)
[2019-02-10] MEDS: Aspirin Enteric Coated 81 MG Tablet PO SCH (08:08)
[2019-02-10] MEDS: Cholecalciferol (D-3) 1,000 UNIT TABLET PO SCH (08:08)
[2019-02-10] MEDS: amLODIPine 5 MG TABLET PO SCH (08:08)
[2019-02-10] MEDS: Famotidine 20 MG TABLET PO SCH (08:08)
[2019-02-10] MEDS: Lactobacillus 1 EACH CAP.SPRINK PO SCH ×2 (08:08→21:18)
[2019-02-10] MEDS: *HR* HYDROcodone/Acet 5/325 mg TABLET PO PRN (08:10)
[2019-02-10] MEDS: Patient Taking Own Medication 1 EACH IH SCH (08:11)
--- NOTE | 2019-02-10 09:59 | Internal Med Progress Note ---
Date of Encounter: 02/10/19 Time of Encounter: 09:52 - Assessment and plan (1) Pneumonia Current Visit: Yes Status: Acute Assessment and plan: February 10. Continue Rocephin and Zithromax with lactobacillus. Qualifiers: Pneumonia type: due to unspecified organism Laterality: left Lung location: lower lobe of lung Qualified Code(s): J18.1 - Lobar pneumonia, unspecified organism (2) COPD (chronic obstructive pulmonary disease) Current Visit: Yes Status: Chronic Assessment and plan: February 10. Continue present regimen. Qualifiers: COPD type: unspecified COPD Qualified Code(s): J44.9 - Chronic obstructive pulmonary disease, unspecified (3) Adrenal mass, right Current Visit: No Status: Chronic Assessment and plan: February 10. Likely malignancy. She declines further workup or treatment. (4) CKD (chronic kidney disease) stage 3, GFR 30-59 ml/min Current Visit: No Status: Chronic Assessment and plan: February 10. Monitor renal indices. (5) Fall Current Visit: No Status: Acute Assessment and plan: February 10. PT and OT evaluations have been done. Initiate transfer for SNF placement after discharge. Qualifiers: Encounter type: initial encounter Qualified Code(s): W19.XXXA - Unspecified fall, initial encounter - Subjective Interval history: February 10. She has no new complaints. She feels dyspneic. She has changed her mind and now wishes to go to [facility] upon discharge. - Constitutional Vitals: Temp Pulse Resp BP Pulse Ox 97.5 F L 70 14 150/92 99 02/10/19 08:29 02/10/19 08:29 02/10/19 08:29 02/10/19 08:29 02/10/19 08:29 Exam: She is lying in bed and appears in no acute distress. She is appropriate in conversation. Extremities show no edema. I reviewed her medications and past lab results. Internal Medicine: Result - Labs CBC & Chem 7: 02/08/19 22:44 02/08/19 22:44 Consult Discharge Plan - Plan Referrals: Chelly Santamaria, [employer] [Primary Care Provider] - 1 week
[2019-02-10] MEDS: MOMETASONE FUROATE 100 mcg Inhaler IH SCH ×2 (10:07→23:15)
[2019-02-10] MEDS: cefTRIAXone 1,000 MG in Water for inj. (sterile) 20 ML 10 ML IVP SCH (14:08)
[2019-02-10] MEDS: Azithromycin 500 MG in D5% in Water 250 ML IVPB SCH (14:10)
[2019-02-11] MEDS: Famotidine 20 MG TABLET PO SCH (05:36)
[2019-02-11] MEDS: 0.45 % Sodium Chloride w/KCl 20 MEQ/1,000 ML MLS IVC SCH (05:37)
[2019-02-11 06:43] LABS: Basophils % 0.2 %; Eosinophils # 0.2 K/mcL (0.0-0.6); Eosinophils % 1.4 %; Hematocrit 36.2 % (35.3-44.9); Hemoglobin 11.3 g/dL (11.5-15.4); Immature Granulocytes % 1.5 % (0-4); Mean Corpuscular HGB Conc 31.2 g/dL (31.6-35.5); Mean Corpuscular Hemoglobin 27.6 pg (28.0-33.3); Mean Corpuscular Volume 88.3 fL (83.0-100.0); Mean Platelet Volume 9.5 fL (9.4-12.4); Monocytes % 7.9 %; Neutrophils # 9.8 K/mcL (1.6-8.9); Platelet Count 255 K/mcL (140-400); Red Cell Distribution Width 13.2 % (11.5-14.5)
[2019-02-11 07:08] LABS: Alanine Aminotransferase 7 Units/L (7-52); Albumin 2.7 g/dL (3.5-5.7); Albumin/Globulin Ratio 0.9 (1.1-2.2); Alkaline Phosphatase 80 Units/L (34-104); Aspartate Amino Transferase 9 Units/L (13-39); BUN/Creatinine Ratio 25 (6-26); Bilirubin,Total 0.6 mg/dL (0.3-1.0); Blood Urea Nitrogen 26 mg/dL (8-23); Calcium 9.5 mg/dL (8.6-10.3); Carbon Dioxide 32 mEq/L (23-29); Chloride 95 mEq/L (98-107); Globulin 2.9 g/dL (2.4-3.5); Glucose 124 mg/dL (70-105); Osmolality,Calculated 286 (280-300); Potassium 3.8 mEq/L (3.5-5.1); Sodium 135 mEq/L (136-145); Total Protein 5.6 g/dL (6.4-8.9); eGFR For Non-African Americans 52 (> 60)
[2019-02-11] MEDS: Lactobacillus 1 EACH CAP.SPRINK PO SCH ×2 (08:36→19:44)
[2019-02-11] MEDS: amLODIPine 5 MG TABLET PO SCH (08:36)
[2019-02-11] MEDS: Cholecalciferol (D-3) 1,000 UNIT TABLET PO SCH (08:36)
[2019-02-11] MEDS: Aspirin Enteric Coated 81 MG Tablet PO SCH (08:36)
[2019-02-11] MEDS: *HR* HYDROcodone/Acet 5/325 mg TABLET PO PRN ×2 (08:37→19:44)
[2019-02-11] MEDS: MOMETASONE FUROATE 100 mcg Inhaler IH SCH ×2 (09:54→19:40)
[2019-02-11] MEDS: Patient Taking Own Medication 1 EACH IH SCH (10:28)
[2019-02-11] MEDS: ALPRAZolam 0.5 MG TABLET PO PRN ×2 (11:10→19:44)
[2019-02-11] MEDS: cefTRIAXone 1,000 MG in Water for inj. (sterile) 20 ML 10 ML IVP SCH (14:42)
[2019-02-11] MEDS: Azithromycin 500 MG in D5% in Water 250 ML IVPB SCH (14:43)
--- NOTE | 2019-02-11 15:04 | Internal Med Progress Note ---
Date of Encounter: 02/11/19 Time of Encounter: 14:55 - Assessment and plan (1) Pneumonia Current Visit: Yes Status: Acute Assessment and plan: February 10. Continue Rocephin and Zithromax with lactobacillus. Qualifiers: Pneumonia type: due to unspecified organism Laterality: left Lung location: lower lobe of lung Qualified Code(s): J18.1 - Lobar pneumonia, unspecified organism (2) COPD (chronic obstructive pulmonary disease) Current Visit: Yes Status: Chronic Assessment and plan: February 10. Continue present regimen. Qualifiers: COPD type: unspecified COPD Qualified Code(s): J44.9 - Chronic obstructive pulmonary disease, unspecified (3) Adrenal mass, right Current Visit: No Status: Chronic Assessment and plan: February 10. Likely malignancy. She declines further workup or treatment. (4) CKD (chronic kidney disease) stage 3, GFR 30-59 ml/min Current Visit: No Status: Chronic Assessment and plan: February 10. Monitor renal indices. February 11. Creatinine has decreased to 1.04 with estimated GFR 52. Continue to monitor labs periodically. (5) Fall Current Visit: No Status: Acute Assessment and plan: February 10. PT and OT evaluations have been done. Initiate transfer for SNF placement after discharge. Qualifiers: Encounter type: initial encounter Qualified Code(s): W19.XXXA - Unspecified fall, initial encounter - Subjective Interval history: February 10. She has no new complaints. She feels dyspneic. She has changed her mind and now wishes to go to [facility] upon discharge. February 11. She has no new complaints. - Constitutional Vitals: Temp Pulse Resp BP Pulse Ox 97.9 F 91 26 133/98 94 02/11/19 14:29 02/11/19 14:29 02/11/19 14:29 02/11/19 14:29 02/11/19 14:29 Exam: She is sitting in a chair at bedside. She is wearing oxygen but appears dyspneic. She is able to speak a few words but talking is difficult. She is appropriate and understanding in conversation. I reviewed her medications and lab results. Internal Medicine: Result - Labs CBC & Chem 7: 02/11/19 06:10 02/11/19 06:10 Labs: Short CBC 02/11/19 Range/Units 06:10 WBC 12.1 H (4.3-11.1) K/mcL Hgb 11.3 L (11.5-15.4) g/dL Hct 36.2 (35.3-44.9) % Plt Count 255 (140-400) K/mcL Neutrophils # 9.8 H (1.6-8.9) K/mcL BMP 02/11/19 06:10 Sodium 135 L Potassium 3.8 Chloride 95 L Carbon Dioxide 32 H BUN 26 H Creatinine 1.04 Glucose 124 H Calcium 9.5 Liver Function 02/11/19 Range/Units 06:10 Total Bilirubin 0.6 (0.3-1.0) mg/dL AST 9 L (13-39) Units/L ALT 7 (7-52) Units/L Alkaline Phosphatase 80 (34-104) Units/L Albumin 2.7 L (3.5-5.7) g/dL Consult Discharge Plan - Plan Referrals: Chelly Santamaria, [employer] [Primary Care Provider] - 1 week
[2019-02-12] MEDS: Famotidine 20 MG TABLET PO SCH (06:23)
[2019-02-12] MEDS ORDERED: *HR* Etomidate 20 MG/10 ML AMPUL IVP ONE ×2 (09:13→09:16)
[2019-02-12 10:23] LABS: ABG Base Excess 3 mEq/L (-2 to 3); ABG HCO3 32 mEq/L (21-27); ABG Oxygen Saturation 90 % (95-98); ABG PCO2 72 mmHg (35-45); ABG PH 7.26 pH Units (7.32-7.45); ABG PO2 70 mmHg (85-104); ABG TCO2 34 mEq/L (20-26)
[2019-02-12] MEDS: MOMETASONE FUROATE 100 mcg Inhaler IH SCH ×2 (11:11→21:57)
--- NOTE | 2019-02-12 11:24 | Emergency Department Note ---
START Narrative - START START: I have evaluated this patient on a rapid response on this patient approximately 9:30 to 10 AM on 2018. Patient did not have her oxygen on was saturating in the 50s when she was encountered by hospital staff and has had persistent altered mental status. She is having agonal type respirations and persistent hypoxia. She is not moving extremities or responding. Respiratory therapy started bag valve mask ventilation and I have intubated the patient orotracheally with a 7-Belarusian endotracheal tube under direct visualization without difficulty. Tube was secured at 20 cm and she has good color change on capnography. She has good bilateral breath sounds. We have contacted Dr. Martinez and he has come to the department. He was in contact with the family who indicate this patient is a DNR status and he is clarifying that coordinate how aggressive further care should be. She is continued with a strong perfusing pulse and her saturations are now improved. Orders were verbally given for chest x-ray, EKG, CBC, basic chemistries and troponin. These have not yet been instituted as Dr. Martinez is coronary with family as to her ongoing care and testing. Care is turned over to Dr. Martinez for further care. Diagnosis acute respiratory arrest Condition guarded Procedure: Orotracheal intubation
[2019-02-12] MEDS: Aspirin Enteric Coated 81 MG Tablet PO SCH (11:52)
[2019-02-12] MEDS: Lactobacillus 1 EACH CAP.SPRINK PO SCH ×2 (11:53→21:55)
[2019-02-12] MEDS: amLODIPine 5 MG TABLET PO SCH (11:54)
[2019-02-12] MEDS: Cholecalciferol (D-3) 1,000 UNIT TABLET PO SCH (11:54)
[2019-02-12] MEDS: Patient Taking Own Medication 1 EACH IH SCH (11:55)
[2019-02-12] MEDS ORDERED: *HR* LORazepam 2 MG/ML VIAL IVP PRN (12:52)
[2019-02-12] MEDS: cefTRIAXone 1,000 MG in Water for inj. (sterile) 20 ML 10 ML IVP SCH (13:44)
[2019-02-12] MEDS: Azithromycin 500 MG in D5% in Water 250 ML IVPB SCH (13:46)
--- NOTE | 2019-02-12 15:38 | Internal Med Progress Note ---
Date of Encounter: 02/12/19 Time of Encounter: 15:25 - Assessment and plan (1) Pneumonia Current Visit: Yes Status: Acute Assessment and plan: February 10. Continue Rocephin and Zithromax with lactobacillus. Qualifiers: Pneumonia type: due to unspecified organism Laterality: left Lung location: lower lobe of lung Qualified Code(s): J18.1 - Lobar pneumonia, unspecified organism (2) COPD (chronic obstructive pulmonary disease) Current Visit: Yes Status: Chronic Assessment and plan: February 10. Continue present regimen. Qualifiers: COPD type: unspecified COPD Qualified Code(s): J44.9 - Chronic obstructive pulmonary disease, unspecified (3) Adrenal mass, right Current Visit: No Status: Chronic Assessment and plan: February 10. Likely malignancy. She declines further workup or treatment. (4) CKD (chronic kidney disease) stage 3, GFR 30-59 ml/min Current Visit: No Status: Chronic Assessment and plan: February 10. Monitor renal indices. February 11. Creatinine has decreased to 1.04 with estimated GFR 52. Continue to monitor labs periodically. February 12. Recheck labs in a.m. (5) Fall Current Visit: No Status: Acute Assessment and plan: February 10. PT and OT evaluations have been done. Initiate transfer for SNF placement after discharge. Qualifiers: Encounter type: initial encounter Qualified Code(s): W19.XXXA - Unspecified fall, initial encounter - Subjective Interval history: February 10. She has no new complaints. She feels dyspneic. She has changed her mind and now wishes to go to [facility] upon discharge. February 11. She has no new complaints. February 12. Rapid response was called this morning when she was found to have respiratory distress and decreased responsiveness. She was intubated and given cardiac medications by Dr. Vo. No chest compressions were done. I spoke with her son Scarlet while the rapid response was in progress and he reported she had a living will that specified DNR status. This document had not been filed in her hospital records. After approximately 1 hour he arrived at the hospital and I reviewed the living will and confirmed the DNR status outlined by the document. Her son agreed it was appropriate for her to be extubated without further aggressive/lifesaving interventions. BiPAP was applied. She has been given Ativan for agitation. - Constitutional Vitals: Temp Pulse Resp BP Pulse Ox 97.3 F L 112 32 95/71 100 02/12/19 15:28 02/12/19 15:28 02/12/19 15:28 02/12/19 15:28 02/12/19 15:28 Exam: She is lying in bed and appears dyspneic. She is wearing BiPAP mask. Extremities show no edema. I reviewed her vitals and lab results. Internal Medicine: Result - Labs CBC & Chem 7: 02/11/19 06:10 02/11/19 06:10 - ABG Interpretation ABG results: ABG ABG pH 7.26 pH Units (7.32-7.45) L 02/12/19 10:17 ABG pCO2 72 mmHg (35-45) H* 02/12/19 10:17 ABG pO2 70 mmHg (85-104) L 02/12/19 10:17 ABG O2 Saturation 90 % (95-98) L 02/12/19 10:17 Consult Discharge Plan - Plan Referrals: Chelly Santamaria, MONORAIL HOOKER [Primary Care Provider] - 1 week
[2019-02-12] MEDS: 0.45 % Sodium Chloride w/KCl 20 MEQ/1,000 ML MLS IVC SCH (17:44)
[2019-02-12] MEDS: *HR* LORazepam 2 MG/ML VIAL IVP PRN (17:46)
[2019-02-12] MEDS: Albuterol 2.5 MG/3 ML NEBULIZER IH PRN (18:17)
[2019-02-12 20:13] LABS: ABG Base Excess 2 mEq/L (-2 to 3); ABG HCO3 30 mEq/L (21-27); ABG Oxygen Saturation 91 % (95-98); ABG PCO2 60 mmHg (35-45); ABG PH 7.31 pH Units (7.32-7.45); ABG PO2 70 mmHg (85-104); ABG TCO2 32 mEq/L (20-26); Blood Gas Respiration Rate 12
[2019-02-13] MEDS: *HR* LORazepam 2 MG/ML VIAL IVP PRN (02:26)
[2019-02-13 06:25] LABS: Hematocrit 36.8 % (35.3-44.9); Hemoglobin 11.5 g/dL (11.5-15.4); Mean Corpuscular HGB Conc 31.3 g/dL (31.6-35.5); Mean Corpuscular Hemoglobin 27.5 pg (28.0-33.3); Mean Platelet Volume 9.7 fL (9.4-12.4); Nucleated Red Blood Cells 0.2 /100 WBC (0); Platelet Count 307 K/mcL (140-400); Red Blood Count 4.18 M/mcL (3.82-4.97); Red Cell Distribution Width 13.5 % (11.5-14.5)
[2019-02-13] MEDS ORDERED: *HR* LORazepam Oral Conc 2 MG/ML SL PRN ×2 (06:25→10:06)
[2019-02-13 06:37] LABS: Lymphocytes # 0.9 K/mcL (0.6-4.6)
[2019-02-13 06:42] LABS: Albumin 2.5 g/dL (3.5-5.7); Albumin/Globulin Ratio 0.8 (1.1-2.2); Bilirubin,Total 0.4 mg/dL (0.3-1.0); Calcium 9.5 mg/dL (8.6-10.3); Total Protein 5.5 g/dL (6.4-8.9)
[2019-02-13 07:05] LABS: Hypochromasia Present (Not Present); Monocytes # 0.6 K/mcL (0.0-1.3); Neutrophils # 12.9 K/mcL (1.6-8.9); Platelet Estimate Normal (Normal); Toxic Vacuolation Present (Not Present)
[2019-02-13] MEDS: 0.45 % Sodium Chloride w/KCl 20 MEQ/1,000 ML MLS IVC SCH (08:58)
[2019-02-13] MEDS: Aspirin Enteric Coated 81 MG Tablet PO SCH (09:22)
[2019-02-13] MEDS: Famotidine 20 MG TABLET PO SCH (09:22)
[2019-02-13] MEDS: Lactobacillus 1 EACH CAP.SPRINK PO SCH (09:22)
[2019-02-13] MEDS: Patient Taking Own Medication 1 EACH IH SCH (09:23)
[2019-02-13] MEDS: Cholecalciferol (D-3) 1,000 UNIT TABLET PO SCH (09:23)
--- NOTE | 2019-02-13 10:07 | Internal Med Progress Note ---
Date of Encounter: 02/13/19 Time of Encounter: 10:00 - Assessment and plan (1) Pneumonia Current Visit: Yes Status: Acute Assessment and plan: February 10. Continue Rocephin and Zithromax with lactobacillus. February 12. IV antibiotics have been discontinued. 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 Qualifiers: Pneumonia type: due to unspecified organism Laterality: left Lung location: lower lobe of lung Qualified Code(s): J18.1 - Lobar pneumonia, unspe cified organism (2) COPD (chronic obstructive pulmonary disease) Current Visit: Yes Status: Chronic Assessment and plan: February 10. Continue present regimen. February 12. 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 Family will discuss if BiPAP should be continued. Qualifiers: COPD type: unspecified COPD Qualified Code(s): J44.9 - Chronic obstructive pulmonary disease, unspecified (3) Adrenal mass, right Current Visit: No Status: Chronic Assessment and plan: February 10. Likely malignancy. She declines further workup or treatment. (4) CKD (chronic kidney disease) stage 3, GFR 30-59 ml/min Current Visit: No Status: Chronic Assessment and plan: February 10. Monitor renal indices. February 11. Creatinine has decreased to 1.04 with estimated GFR 52. Continue to monitor labs periodically. February 12. Recheck labs in a.m. February 13. BUN and creatinine have risen to 45 and 2.09 respectively. Oral intake is essentially nil. 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 (5) Fall Current Visit: No Status: Acute Assessment and plan: February 10. PT and OT evaluations have been done. Initiate transfer for SNF placement after discharge. February 13. Discontinue therapy. 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 Qualifiers: Encounter type: initial encounter Qualified Code(s): W19.XXXA - Unspecified fall, initial encounter - Subjective Interval history: February 10. She has no new complaints. She feels dyspneic. She has changed her mind and now wishes to go to [facility] upon discharge. February 11. She has no new complaints. February 12. Rapid response was called this morning when she was found to have respiratory distress and decreased responsiveness. She was intubated and given cardiac medications by Dr. Vo. No chest compressions were done. I spoke with her son Scarlet while the rapid response was in progress and he reported she had a living will that specified DNR status. This document had not been filed in her hospital records. After approximately 1 hour he arrived at the hospital and I reviewed the living will and confirmed the DNR status outlined by the document. Her son agreed it was appropriate for her to be extubated without further aggressive/lifesaving interventions. BiPAP was applied. She has been given Ativan for agitation. February 13. No new problems have developed. Her IV became unusable yesterday. Family chose to have it reinserted. It again became unusable through the night with significant leaking. Family chose to have it discontinued without attempts at restarting. They wish TELEMARKETING SALES REPRESENTATIVE at this time. - Constitutional Vitals: Temp Pulse Resp BP Pulse Ox 97.2 F L 112 27 81/54 96 02/13/19 07:38 02/13/19 07:38 02/13/19 07:38 02/13/19 07:38 02/13/19 07:38 Exam: She is lying in bed with BiPAP in place. She appears dyspneic. Extremities show no edema. I reviewed her medications and lab results. Internal Medicine: Result - Labs CBC & Chem 7: 02/13/19 06:02 02/13/19 06:02 Labs: Short CBC 02/13/19 Range/Units 06:02 WBC 15.4 H (4.3-11.1) K/mcL Hgb 11.5 (11.5-15.4) g/dL Hct 36.8 (35.3-44.9) % Plt Count 307 (140-400) K/mcL Neutrophils # 12.9 H (1.6-8.9) K/mcL BMP 02/13/19 06:02 Sodium 132 L Potassium 5.0 Chloride 95 L Carbon Dioxide 26 BUN 45 H Creatinine 2.09 H Glucose 114 H Calcium 9.5 Liver Function 02/13/19 Range/Units 06:02 Total Bilirubin 0.4 (0.3-1.0) mg/dL AST 11 L (13-39) Units/L ALT 8 (7-52) Units/L Alkaline Phosphatase 90 (34-104) Units/L Albumin 2.5 L (3.5-5.7) g/dL - ABG Interpretation ABG results: ABG ABG pH 7.31 pH Units (7.32-7.45) L 02/12/19 20:10 ABG pCO2 60 mmHg (35-45) H 02/12/19 20:10 ABG pO2 70 mmHg (85-104) L 02/12/19 20:10 ABG O2 Saturation 91 % (95-98) L 02/12/19 20:10 Consult Discharge Plan - Plan Referrals: Chelly Santamaria, ENTRY ENGINEER [Primary Care Provider] - 1 week
[2019-02-13] MEDS: MOMETASONE FUROATE 100 mcg Inhaler IH SCH (13:12)
[2019-02-13] MEDS: MORPHINE SUL Oral CONC 10 MG/0.5 ML ORAL.SYG SL PRN ×2 (13:20→14:37)
--- NOTE | 2019-02-13 23:12 | Electrocardiograph Report ---
[address] [address] Test Date: 2019-02-12 Pat Name: Pao Tompkins Department: [id number] Room: [facility] Gender: F Teacher Visually Impaired: Isaias : 1945 Requested By: Mirza Martinez Order Number: [id number] Reading MD: Chapin Sarkar Measurements Intervals [place] Rate: 114 P: 95 MD: 131 QRS: 256 QRSD: 150 T: 202 QT: 310 QTc: 377 Interpretive Statements SINUS TACHYCARDIA POSSIBLE LEFT ATRIAL ENLARGEMENT INDETERMINATE AXIS INTRAVENTRICULAR CONDUCTION DELAY Electronically Signed On 02-13-2019 23:10:47 EDT by Chapin Sarkar
[2019-02-14 07:02] VITALS: BP 74/56
--- NOTE | 2019-02-14 09:40 | Internal Med Progress Note ---
Date of Encounter: 02/14/19 Time of Encounter: 09:33 - Assessment and plan (1) Pneumonia Current Visit: Yes Status: Acute Assessment and plan: February 10. Continue Rocephin and Zithromax with lactobacillus. February 12. IV antibiotics have been discontinued. 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 February 14. 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 Anticipate survival less than 12 hours. Qualifiers: Pneumonia type: due to unspecified organism Laterality: left Lung location: lower lobe of lung Qualified Code(s): J18.1 - Lobar pneumonia, unspecified organism (2) COPD (chronic obstructive pulmonary disease) Current Visit: Yes Status: Chronic Assessment and plan: February 10. Continue present regimen. February 12. 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 Family will discuss if BiPAP should be continued. February 14. BiPAP has been discontinued. Continue THEATRE PROGRAM DIRECTOR Qualifiers: COPD type: unspecified COPD Qualified Code(s): J44.9 - Chronic obstructive pulmonary disease, unspecified (3) Adrenal mass, right Current Visit: No Status: Chronic Assessment and plan: February 10. Likely malignancy. She declines further workup or treatment. (4) CKD (chronic kidney disease) stage 3, GFR 30-59 ml/min Current Visit: No Status: Chronic Assessment and plan: February 10. Monitor renal indices. February 11. Creatinine has decreased to 1.04 with estimated GFR 52. Continue to monitor labs periodically. February 12. Recheck labs in a.m. February 13. BUN and creatinine have risen to 45 and 2.09 respectively. Oral intake is essentially nil. Family has requested IV remain out and THEATRE PROGRAM DIRECTOR. (5) Fall Current Visit: No Status: Acute Assessment and plan: February 10. PT and OT evaluations have been done. Initiate transfer for SNF placement after discharge. February 13. Discontinue therapy. 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 Qualifiers: Encounter type: initial encounter Qualified Code(s): W19.XXXA - Unspecified fall, initial encounter - Subjective Interval history: February 10. She has no new complaints. She feels dyspneic. She has changed her mind and now wishes to go to [facility] upon discharge. February 11. She has no new complaints. February 12. Rapid response was called this morning when she was found to have respiratory distress and decreased responsiveness. She was intubated and given cardiac medications by Dr. Vo. No chest compressions were done. I spoke with her son Scarlet while the rapid response was in progress and he reported she had a living will that specified DNR status. This document had not been filed in her hospital records. After approximately 1 hour he arrived at the hospital and I reviewed the living will and confirmed the DNR status outlined by the document. Her son agreed it was appropriate for her to be extubated without further aggressive/lifesaving interventions. BiPAP was applied. She has been given Ativan for agitation. February 13. No new problems have developed. Her IV became unusable yesterday. Family chose to have it reinserted. It again became unusable through the night with significant leaking. Family chose to have it discontinued without attempts at restarting. They wish THEATRE PROGRAM DIRECTOR at this time. February 14. No new problems have arisen. Family wished BiPAP to be removed yesterday afternoon and this was done. - Constitutional Vitals: Temp Pulse Resp BP Pulse Ox 99.9 F H 129 28 74/56 88 02/14/19 06:56 02/14/19 06:56 02/14/19 06:56 02/14/19 06:56 02/14/19 06:56 Exam: She is resting peacefully in bed. Her respirations are slow and gasping. I reviewed her vital signs. Internal Medicine: Result - Labs CBC & Chem 7: 02/13/19 06:02 02/13/19 06:02 - ABG Interpretation ABG results: ABG ABG pH 7.31 pH Units (7.32-7.45) L 02/12/19 20:10 ABG pCO2 60 mmHg (35-45) H 02/12/19 20:10 ABG pO2 70 mmHg (85-104) L 02/12/19 20:10 ABG O2 Saturation 91 % (95-98) L 02/12/19 20:10 Consult Discharge Plan - Plan Referrals: Chelly Santamaria, RUSLAN [Primary Care Provider] - 1 week
--- NOTE | 2019-02-14 11:22 | Discharge Summary ---
Date of Encounter: 02/14/19 Time of Encounter: 11:17 - Discharge Diagnosis (1) Pneumonia Priority: Primary Status: Acute Qualifiers: Pneumonia type: due to unspecified organism Laterality: left Lung location: lower lobe of lung Qualified Code(s): J18.1 - Lobar pneumonia, unspecified organism (2) COPD (chronic obstructive pulmonary disease) Priority: Secondary Status: Chronic Qualifiers: COPD type: unspecified COPD Qualified Code(s): J44.9 - Chronic obstructive pulmonary disease, unspecified (3) Adrenal mass, right Priority: Secondary Status: Chronic (4) CKD (chronic kidney disease) stage 3, GFR 30-59 ml/min Priority: Secondary Status: Chronic (5) Fall Priority: Secondary Status: Acute Qualifiers: Encounter type: initial encounter Qualified Code(s): W19.XXXA - Unspecified fall, initial encounter Hospital course: Ms. Tompkins is a 73 year old female who came to emergency room stating she had a fall at home. She was unable to get up using her own strength. Her son assisted her up and she was brought to emergency room and evaluated. No fractures were seen but her son did not feel he could continue to care for her in her debilitated state. She was admitted to [facility] floor for ongoing care needs. Initial orders were written by the emergency room physician. I saw her on February 09 and performed a history and physical. She was started on IV Rocephin and Zithromax empirically for pneumonia. She confirmed she did not wish aggressive workup or treatment done for probable underlying malignancy. A rapid response was called morning of February 12 due to respiratory distress and decreased responsiveness. She was intubated and given cardiac medications by the ER physician. No chest compressions were required. Her son reported she had a living will that specified DNR status. The living will document was reviewed and the DNR status confirmed. She was extubated and placed on BiPAP. She continued to have labored respirations. Her IV became nonfunctional twice. After the second episode the family requested no further aggressive intervention be done and the IV fluids/antibiotics were discontinued. She had gradual decline and was found without pulse or respirations at 1003 on February 14 and was pronounced . Body was released to home. - Time Spent with Patient Total time spent providing and/or coordinating discharge services: - Discharge Medications Prescriptions: No Action amLODIPine [Norvasc] 5 mg PO DAILY Lansoprazole [Prevacid] 30 mg PO DAILY Albuterol Sulfate [Proair Hfa] 1 puff IH AD PRN PRN Reason: Shortness Of Breath Aspirin [Lo-Dose Aspirin EC] 81 mg PO DAILY Metoprolol [Lopressor] 50 mg PO DAILY Cholecalciferol (Vitamin D3) [Vitamin D3] 5,000 unit PO DAILY raNITIdine HCl [Zantac] 150 mg PO BID Fluticasone Propionate [Flovent Hfa] 2 puff IH BID Umeclidinium Brm/Vilanterol Tr [Anoro Ellipta 62.5-25 Mcg INH] 1 each IH DAILY Tramadol HCl [Ultram] 50 mg PO BID PRN PRN Reason: Pain Home Medications: Albuterol Sulfate [Proair Hfa] 1 puff IH AD PRN 01/31/17 [History] Lansoprazole [Prevacid] 30 mg PO DAILY 01/31/17 [History] amLODIPine [Norvasc] 5 mg PO DAILY 01/31/17 [History] Aspirin [Lo-Dose Aspirin EC] 81 mg PO DAILY 11/13/17 [History] Cholecalciferol (Vitamin D3) [Vitamin D3] 5,000 unit PO DAILY 11/13/17 [History] Metoprolol [Lopressor] 50 mg PO DAILY 11/13/17 [History] Fluticasone Propionate [Flovent Hfa] 2 puff IH BID 02/07/19 [History] Tramadol HCl [Ultram] 50 mg PO BID PRN 02/07/19 [History] Umeclidinium Brm/Vilanterol Tr [Anoro Ellipta 62.5-25 Mcg INH] 1 each IH DAILY 02/07/19 [History] raNITIdine HCl [Zantac] 150 mg PO BID 02/07/19 [History] Allergies/Adverse Reactions: Allergy/AdvReac Type Severity Reaction Status Date / Time niacin Allergy Hives Verified 08/17/17 11:57 quinine Allergy See Verified 08/17/17 11:57 Comments Date of admission: 02/09/19 13:06 Primary care physician: Chelly Santamaria Consults: 02/09/19 13:04 Consult to Occupational Therapy [CONS] Routine Comment: Evaluate, develop and implement POC Reason for Consult: Fall, weakness Does patient have active BEDREST order?: No Is patient medically & hemodynamically stable?: Yes Patient assessed for mobility or mobilized this visit?: Yes Consult to Physical Therapy [CONS] Routine Comment: Evaluate, develop and implement POC Reason for Consult: Fall, weakness Does patient have active BEDREST order?: No Is patient medically & hemodynamically stable?: Yes Patient assessed for mobility or mobilized this visit?: Yes - Constitutional Vitals: Temp Pulse Resp BP Pulse Ox 99.9 F H 129 28 74/56 88 02/14/19 06:56 02/14/19 06:56 02/14/19 06:56 02/14/19 06:56 02/14/19 06:56 - Patient Status Disposition: Condition: Fair - Discharge Instructions
== END 2019-02-14 13:10 | disposition expired | DRG 208 ==
LOC: INPPIK 20:23 → EMEROOPIK 20:23 → INPPIK 23:24
PROVIDERS: ADMIT Internal Medicine; ATTEND Internal Medicine